=== PATIENT | male | born 1940 | race Caucasian/White ===

== ENCOUNTER → 2016-07-21 | Outpatient (CLI) | payer MEDICARE | END | disposition home or self-care (01) | LOC: ROC 13:21 | PROVIDERS: ATTEND Radiology Radiation Oncology | DX: C34.2 Malignant neoplasm of middle lobe, bronchus or lung (principal) | CPT/HCPCS: G0463 ==

== ENCOUNTER → 2017-05-29 | Outpatient (CLI) | payer MEDICARE | END | disposition home or self-care (01) | LOC: ROC 10:40 | PROVIDERS: ATTEND Radiology Radiation Oncology | DX: C34.10 Malignant neoplasm of upper lobe, unspecified bronchus or lung (principal); Z79.82 Long term (current) use of aspirin | CPT/HCPCS: G0463 ==